=== PATIENT | female | born 1970 ===

== ENCOUNTER 2021-11-29 14:17 | Inpatient (IN) | payer OTHER ==
[~2021-11-29] VITALS: Ht 162.6 cm; Wt 130.8 kg
[2021-11-29 15:54] LABS: HEMOGLOBIN 18.5 gm/dl (12.3-15.3); RED BLOOD COUNT 5.97 M/UL (4.00-5.10); WHITE BLOOD COUNT 8.2 K/UL (4.5-11.0)
[2021-11-29 16:40] LABS: BUN/CREATININE RATIO 24 (0-10)
[2021-11-30 04:13] LABS: HEMOGLOBIN 18.2 gm/dl (12.3-15.3); RED BLOOD COUNT 5.99 M/UL (4.00-5.10); WHITE BLOOD COUNT 8.8 K/UL (4.5-11.0)
[2021-11-30 04:42] LABS: BUN/CREATININE RATIO 26 (0-10)
[2021-11-30] MEDS ORDERED: PROAIR HFA8.5 GM INH (09:18)
[2021-11-30] MEDS ORDERED: ATORVASTATIN CA20 MG PO (09:19)
[2021-11-30] MEDS ORDERED: SYMBICORT 16010.2 GM INH (09:19)
[2021-11-30] MEDS ORDERED: AMLODIPINE BESY10 MG PO (09:19)
[2021-11-30] MEDS ORDERED: CETIRIZINE HCL10 MG PO (09:19)
[2021-11-30] MEDS ORDERED: FAMOTIDINE20 MG PO (09:20)
[2021-11-30] MEDS ORDERED: ADVAIR 250-501 EACH INH (09:20)
[2021-11-30] MEDS ORDERED: GABAPENTIN600 MG PO (09:21)
[2021-11-30] MEDS ORDERED: MIRTAZAPINE45 MG PO (09:21)
[2021-11-30] MEDS ORDERED: LOSARTAN POTASS25 MG PO (09:21)
[2021-11-30] MEDS ORDERED: PROTONIX 40 MG40 M1 PO (09:22)
[2021-11-30] MEDS ORDERED: PROPRANOLOL HCL40 MG PO (09:22)
[2021-11-30] MEDS ORDERED: MIRALAX17 GM PO (09:22)
[2021-11-30] MEDS ORDERED: ALPRAZOLAM2 MG PO (09:23)
[2021-11-30] MEDS ORDERED: TOPIRAMATE50 MG PO (09:23)
[2021-11-30] MEDS ORDERED: SUCRALFATE1 GM PO (09:23)
[2021-11-30] MEDS ORDERED: SUMATRIPTAN SUC25 MG PO (09:23)
[2021-11-30] MEDS ORDERED: LEXAPRO10 MG PO (09:24)
[2021-11-30] MEDS ORDERED: HYDROCODON-ACE1 EAC6 PO (09:26)
--- NOTE | 2021-11-30 16:28 | NUR ---
notified dr. hameed per patient request to speak to her
[2021-12-01 06:35] LABS: HEMOGLOBIN 16.6 gm/dl (12.3-15.3); RED BLOOD COUNT 5.46 M/UL (4.00-5.10); WHITE BLOOD COUNT 7.7 K/UL (4.5-11.0)
[2021-12-01 06:55] LABS: BUN/CREATININE RATIO 31 (0-10)
--- NOTE | 2021-12-02 08:30 | NUR ---
PT REFUSED FALL RISK PRECAUTIONS WHEN TECH TRIED TO APPLY. NURSE AWARE, AND PT HAS BEEN EDUCATED ON THE DANGERS OF REFUSING. [employer] NOTIFIED. [place]
[2021-12-02] MEDS ORDERED: STIMULANT LAXA1 EACH PO (14:41)
[2021-12-02] MEDS ORDERED: IPRAT-ALBUT 0.5-3 ML NEB (14:41)
[2021-12-02] MEDS ORDERED: BROVANA15 MCG/2 M NEB (14:41)
[2021-12-02] MEDS ORDERED: SPIRIVA RESPIMAT4 GM INH (14:41)
[2021-12-02] MEDS ORDERED: PERCOCET 5/325 T1 EA PO (14:41)
== END 2021-12-02 16:11 | disposition home or self-care (01) | DRG 313 ==
LOC: ER1 14:17 → CDU 18:16 → MED SURG 4 11-30 11:56
PROVIDERS: Emergency Medicine; Internal Medicine Infectious Disease; ADMIT Internal Medicine
PROC: 5A09357 Assistance with Respiratory Ventilation, Less than 24 Consecutive Hours, Continuous Positive Airway Pressure (ICD-10-PCS; principal; 2021-12-01)
DX: R07.89 Other chest pain (principal); E66.2 Morbid (severe) obesity with alveolar hypoventilation; J96.11 Chronic respiratory failure with hypoxia; J96.12 Chronic respiratory failure with hypercapnia; Z68.42 Body mass index [BMI] 45.0-49.9, adult; Z20.822 Contact with and (suspected) exposure to COVID-19; I50.32 Chronic diastolic (congestive) heart failure; I11.0 Hypertensive heart disease with heart failure; J44.9 Chronic obstructive pulmonary disease, unspecified; G47.33 Obstructive sleep apnea (adult) (pediatric); F32.A Depression, unspecified; K21.9 Gastro-esophageal reflux disease without esophagitis; D75.1 Secondary polycythemia; F41.9 Anxiety disorder, unspecified; G43.909 Migraine, unspecified, not intractable, without status migrainosus; F17.210 Nicotine dependence, cigarettes, uncomplicated; B19.20 Unspecified viral hepatitis C without hepatic coma; Z98.891 History of uterine scar from previous surgery; Z90.710 Acquired absence of both cervix and uterus; Z88.2 Allergy status to sulfonamides; Z83.2 Family history of diseases of the blood and blood-forming organs and certain disorders involving the immune mechanism; Z84.1 Family history of disorders of kidney and ureter
CPT/HCPCS: 36415; 36600; 71045; 71046; 73564; 80053; 80061; 81001; 82550; 82553; 82803; 83735; 83880; 84443; 84484; 85025; 86140; 93005; 93970; 94640; 94660; 94664; 94760; 96372; 96374; 96375; 99285; G0378; J1120; J1650; J1885; J2270